=== PATIENT | female | born 1955 | race African-American/Black ===

== ENCOUNTER → 2020-01-21 | Day surgery (SDC) | payer MEDICARE, OTHER ==
[2020-01-16 10:12] LABS: BASOPHILS # (AUTO) 0.1 (0.0-0.1); EOSINOPHILS # (AUTO) 0.2 (0.0-0.4); HEMATOCRIT 35.4 % (34.2-44.1); HEMOGLOBIN 10.2 g/dL (12.0-16.0); LYMPHOCYTES # (AUTO) 2.4 (1.0-3.2); LYMPHOCYTES % 24.3 % (18.0-39.1); MEAN CORPUSCULAR HEMOGLOBIN 26.6 pg (28-32); MEAN CORPUSCULAR HGB CONC 28.8 g/dL (31-35); MEAN CORPUSCULAR VOLUME 92.4 fL (81-99); MONOCYTES # (AUTO) 0.8 (0.2-0.8); MONOCYTES % 8.2 % (4.4-11.3); NEUTROPHILS # (AUTO) 6.3 (2.1-6.9); NEUTROPHILS % 63.8 % (38.7-80.0); PLATELET COUNT 321 x10e3/uL (140-360); RED BLOOD COUNT 3.83 x10e6/uL (3.6-5.1); RED CELL DISTRIBUTION WIDTH 13.9 % (11.7-14.4)
[2020-01-16 12:28] LABS: HYPOCHROMASIA MODERATE; RBC MORPHOLOGY COMMENT ABNORMAL
[~2020-01-21] MED LIST: AMLODIPINE BESYL5 MG PO; ASPIRIN81 MG PO; ATORVASTATIN CA20 MG PO; CENTRUM WOMEN1 EACH PO; CLONIDINE HCL0.3 MG PO; CLOPIDOGREL75 MG PO; NIFEDIPINE ER30 M1 PO; PROAIR HFA INH8.5 GM INH; PROPOFOL IV EMULSION 10 MG/ML 20 ML VIAL ONE; VICTOZA 2-0.6 MG/0.1 SQ
[2020-01-21 11:05] VITALS: BP 154/58
== END | disposition home or self-care (01) ==
LOC: OR 07:29
PROVIDERS: ATTEND Internal Medicine Gastroenterology
DX: Z12.11 Encounter for screening for malignant neoplasm of colon (principal); D12.0 Benign neoplasm of cecum; D12.3 Benign neoplasm of transverse colon; D12.4 Benign neoplasm of descending colon; K57.30 Diverticulosis of large intestine without perforation or abscess without bleeding; K64.8 Other hemorrhoids; K21.9 Gastro-esophageal reflux disease without esophagitis; J44.9 Chronic obstructive pulmonary disease, unspecified; I25.810 Atherosclerosis of coronary artery bypass graft(s) without angina pectoris; E11.22 Type 2 diabetes mellitus with diabetic chronic kidney disease; I13.0 Hypertensive heart and chronic kidney disease with heart failure and stage 1 through stage 4 chronic kidney disease, or unspecified chronic kidney disease; N18.9 Chronic kidney disease, unspecified; E78.5 Hyperlipidemia, unspecified; I25.2 Old myocardial infarction; Z88.6 Allergy status to analgesic agent; Z01.810 Encounter for preprocedural cardiovascular examination; Z01.812 Encounter for preprocedural laboratory examination; Z11.59 Encounter for screening for other viral diseases; Z79.02 Long term (current) use of antithrombotics/antiplatelets; Z79.82 Long term (current) use of aspirin; Z95.5 Presence of coronary angioplasty implant and graft; Z95.1 Presence of aortocoronary bypass graft; Z86.73 Personal history of transient ischemic attack (TIA), and cerebral infarction without residual deficits; Z80.0 Family history of malignant neoplasm of digestive organs
CPT/HCPCS: 36415 ×2; 45384; 45385; 82948; 85025; 93005; J2704; U0002; 45378

== ENCOUNTER → 2021-02-09 | Day surgery (SDC) | payer MEDICARE ==
[2021-02-04 11:43] LABS: BASOPHILS # (AUTO) 0.1 (0.0-0.1); EOSINOPHILS # (AUTO) 0.4 (0.0-0.4); EOSINOPHILS % 3.1 % (0.0-6.0); HEMATOCRIT 37.5 % (34.2-44.1); LYMPHOCYTES # (AUTO) 2.4 (1.0-3.2); LYMPHOCYTES % 21.7 % (18.0-39.1); MEAN CORPUSCULAR HEMOGLOBIN 27.2 pg (28-32); MEAN CORPUSCULAR HGB CONC 29.3 g/dL (31-35); MEAN CORPUSCULAR VOLUME 92.6 fL (81-99); MONOCYTES % 8.5 % (4.4-11.3); NEUTROPHILS # (AUTO) 7.2 (2.1-6.9); NEUTROPHILS % 64.5 % (38.7-80.0); PLATELET COUNT 302 x10e3/uL (140-360); RED BLOOD COUNT 4.05 x10e6/uL (3.6-5.1); RED CELL DISTRIBUTION WIDTH 12.8 % (11.7-14.4)
[~2021-02-09] MED LIST changes: +ALBUTEROL0.63 MG/3 NEB; +CENTRUM ADULTS1 EACH PO; +FEROSUL325 MG PO; +INSULIN SC; +MIDAZOLAM HCL 2 MG/2 ML VIAL ONE; +POVIDONE IODINE 0.05% 0.05 % ML PO ONE; +VICTOZA 2-0.6 MG/0.1 SC
[2021-02-09 14:20] VITALS: BP 122/53
== END | disposition home or self-care (01) ==
LOC: OR 10:50 → MERGE 10:50
PROVIDERS: ATTEND Internal Medicine Gastroenterology
DX: Z12.11 Encounter for screening for malignant neoplasm of colon (principal); D12.0 Benign neoplasm of cecum; D12.2 Benign neoplasm of ascending colon; D12.3 Benign neoplasm of transverse colon; D12.4 Benign neoplasm of descending colon; K57.30 Diverticulosis of large intestine without perforation or abscess without bleeding; D64.9 Anemia, unspecified; E11.9 Type 2 diabetes mellitus without complications; I25.810 Atherosclerosis of coronary artery bypass graft(s) without angina pectoris; I10 Essential (primary) hypertension; E78.5 Hyperlipidemia, unspecified; I25.2 Old myocardial infarction; F41.9 Anxiety disorder, unspecified; F32.9 Major depressive disorder, single episode, unspecified; Z88.6 Allergy status to analgesic agent; Z01.810 Encounter for preprocedural cardiovascular examination; Z01.812 Encounter for preprocedural laboratory examination; Z79.02 Long term (current) use of antithrombotics/antiplatelets; Z79.82 Long term (current) use of aspirin; Z68.31 Body mass index [BMI] 31.0-31.9, adult; Z86.73 Personal history of transient ischemic attack (TIA), and cerebral infarction without residual deficits; Z95.1 Presence of aortocoronary bypass graft; Z80.0 Family history of malignant neoplasm of digestive organs
CPT/HCPCS: 36415; 45385; 85025; 93005; J2250; J2704